=== PATIENT | male | born 1960 | race Caucasian/White ===

== ENCOUNTER → 2024-03-17 13:10 | Outpatient (REF) | payer OTHER, SELFPAY | LOC: MRI 3T 13:10 | PROVIDERS: ATTENDING PHYSICIAN Specialist; FAMILY PHYSICIAN Family Medicine | DX: C61 Malignant neoplasm of prostate (principal) | CPT/HCPCS: 72197; A9575 ==

== ENCOUNTER 2024-04-15 06:10 | Day surgery (SDC) | payer OTHER, SELFPAY ==
[2024-04-01 13:15] VITALS: BMI 36.0
[2024-04-01 13:57] LABS: INR 1.04; PT 13.6 Sec (11.4-14.6)
--- NOTE | 2024-04-02 15:00 | PTCARENOTE ---
Abn ECG, Dr. Garcia notified, no requests made.
[2024-04-15] VITALS (12 sets, daily range): BP systolic 100–160; BP diastolic 64–90; BMI 36.0
[2024-04-15] MEDS: NEOMYCIN ENEMA 1 BOTTLE RECTAL (06:35)
[2024-04-15] MEDS: NORMOSOL-R 1000 IV ×2 (06:40→12:13)
[2024-04-15 11:56] LABS: Glucose - Point of Care 170 mg/dl (70-99)
--- NOTE | 2024-04-15 13:16 | PTCARENOTE ---
pt admitted from PACU AOx2, denies pain, LCTA on 2L abd round obese. 5 lap sites on upper abd. cont bowel, vivar cath draining clear yellow urine. +PP no edema. CB in reach.
[2024-04-15] MEDS: COLACE PO ×2 (15:09)
[2024-04-15] MEDS: ZESTRIL 10 MG PO (15:09)
[2024-04-15] MEDS: ASPIR LOW (ENTERIC COATED) PO (15:10)
[2024-04-15] MEDS: POLYSPORIN/DOUBLE ANTIBIOTIC 1 APPLIC TOPICAL ×2 (15:10→20:16)
[2024-04-15] MEDS: COLACE 100 MG PO (15:27)
--- NOTE | 2024-04-15 16:49 | PTCARENOTE ---
pt tolerated CLD, advanced to regular per orders. urine in vivar now darker with trace sediment. pt denies pain. CB in reach
[2024-04-15] MEDS: TORADOL 15 MG IV (17:05)
[2024-04-15] MEDS: ZYLOPRIM 300 MG PO (22:02)
[2024-04-15] MEDS: CRESTOR 20 MG PO (22:02)
[2024-04-16] MEDS: TORADOL 15 MG IV ×2 (00:33→05:50)
[2024-04-16] MEDS: NORMOSOL-R 1000 IV (00:36)
[2024-04-16 03:00] VITALS: BP 116/62
[2024-04-16] MEDS: SYNTHROID 150 MCG PO (05:49)
[2024-04-16 07:00] VITALS: BP 105/62
[2024-04-16 07:10] LABS: Hematocrit 41.7 % (39.0-52.0); Hemoglobin 14.1 g/dL (13.0-18.0); Mean Corp Hgb Conc. 33.8 g/dL (33.0-37.0); Mean Corpuscular Hgb 29.1 pg (27.0-31.0); Mean Platelet Volume 8.8 fL (7.4-10.4); Platelet Count 178 10^3/uL (130-400); Red Blood Cell Count 4.85 10^6/uL (4.70-6.10); Red Cell Dist. Width 13.3 % (11.5-14.5); White Blood Cell Count 10.5 10^3/uL (4.8-10.8)
[2024-04-16 07:54] LABS: Blood Urea Nitrogen 27 mg/dl (9-20); Calcium 8.3 mg/dl (8.4-10.2); Carbon Dioxide 27 mmol/L (22-30); Chloride 100 mmol/L (98-107); Estimated Creatinine Clearance 55 ml/min; Glucose 116 mg/dl (70-99); Potassium 4.6 mmol/L (3.5-5.1); Sodium 134 mmol/L (135-145); eGFR 44.74
--- NOTE | 2024-04-16 08:29 | W.PN.URO.CBU ---
Today's Communication / Plan
-
discharge
Assessment / Plan
-
stable
Diagnosis
-
Date of Service: April 16, 2024
-
Patient Diagnosis: prostate cancer s/p robotic radical prostatectomy
Post Op Day: 1
Subjective
-
feels fit for discharge
Objective
-
Vital Signs
Temp Pulse Resp BP Pulse Ox
98 F 70 16 105/62 94
04/16/24 07:00 04/16/24 07:00 04/16/24 07:00 04/16/24 07:00 04/16/24 07:00
Intake and Output
04/15/24 04/16/24 04/17/24
06:59 06:59 06:59
Intake Total 1080 / 1080 483 / 483
Output Total 1450 / 1450
Balance -370 / -370 483 / 483
Intake:
Oral fluids 1080 / 1080
IV fluids (Total) 483 / 483
Output:
Urine, Vivar 1450 / 1450
Laboratory Results
04/16/24 06:23
04/16/24 06:23
Physical Exam
-
General - well developed, well nourished, no acute distress
Chest - clear bilaterally
Abdomen - positive bowel sounds, no distention
Genitalia - vivar draining serafin urine
Skin - warm & dry with no rash
Neuro - AOx3, no motor deficits
Extremities - no clubbing, no cyanosis, no edema
Incisions - clean, dry, dressed
[2024-04-16] MEDS: COLACE 100 MG PO (08:30)
[2024-04-16] MEDS: ASPIR LOW (ENTERIC COATED) 81 MG PO (08:30)
[2024-04-16] MEDS: ZESTRIL 10 MG PO (08:30)
[2024-04-16] MEDS: POLYSPORIN/DOUBLE ANTIBIOTIC 1 APPLIC TOPICAL (08:31)
--- NOTE | 2024-04-16 10:15 | CM ---
Spoke with patient to update that attending needs for VN to come out to see patient. Patient stated that he would like for VN. Instructions for patient care written in referral.
Plan: Case management will continue to follow and assist with discharge planning. Home with VN.
== END 2024-04-16 10:25 | disposition home or self-care (01) ==
LOC: SDS 06:10
PROVIDERS: ATTENDING PHYSICIAN Specialist; FAMILY PHYSICIAN Family Medicine
DX: C61 Malignant neoplasm of prostate (principal); K66.0 Peritoneal adhesions (postprocedural) (postinfection)
CPT/HCPCS: 55866; 38571; 51990; 88305; 88307; 88309; 36415; 80048; 82962; 85027; 85610; 85730; 93005

== ENCOUNTER 2024-04-20 15:24 | Inpatient (IN) | payer OTHER, SELFPAY ==
[2024-04-20] VITALS (12 sets, daily range): BP systolic 120–158; BP diastolic 63–94; BMI 35.6; BMI 34.7
--- NOTE | 2024-04-20 11:17 | ED.GENMED ---
History of Present Illness
General
Chief Complaint: Breathing Problem
Source: patient
Exam Limitations: none
Time Seen by Provider: 04/20/24 11:15
Nursing documentation reviewed up to this point in time: agreed with
Travel History
Have you had any contact with someone who has COVID-19?: No
Do you have any symptoms of coronavirus? Fever > 100 degrees, chills, cough, shortness of breath, sore throat, loss of taste or smell, muscle aches, or headache?: No
History of Present Illness
History of Present Illness:
Patient is a 63-year-old male status post robotic radical prostatectomy April 16 presents to the ER for evaluation of shortness of breath. Patient started with mild sore throat 2 days ago and started with mild cough and shortness of breath yesterday.
Patient reports he is wheezing and very short of breath today. He does have history of blood clot/PE in 2012.
Patient is a former smoker quit years ago no prior history of COPD.
Past History
Past History
ED Past Medical History: Other (Gout, prediabetes)
ED Past Surgical History: None
Social History
Tobacco: Non-smoker
Alcohol: None
Review of Systems
Review of Systems
Allergies reviewed?: Yes
All Other Systems: ROS reviewed and negative except as documented in HPI and ROS
Constitutional: Reports no symptoms; Denies fever, fatigue or chills
Respiratory: Reports cough, trouble breathing and other (wheezing )
Cardiac: Reports no symptoms
ABD/GI: Reports no symptoms
: Reports no symptoms
Musculoskeletal: Reports no symptoms
Skin: Reports no symptoms
Psychiatric: Reports no symptoms
Phy Exam
General Physical Exam
General Presentation: no apparent distress
General age: appears stated age
General Skin: warm and dry
General Habitus: normal
General Mental: alert
Cardiovascular Exam
Cardiovascular Exam: regular rate/rhythm, no murmur and normal peripheral pulses
Pulmonary Exam
Pulmonary Exam: other (Hernia umbilicalcough exp wheezing throughout )
Neurological Exam
Neurological Exam: alert and oriented x3
Musculoskeletal Exam
Musculoskeletal Exam: full ROM
Skin Exam
Skin Exam: normal color and warm/dry
Psychiatric Exam
Psychiatric Exam: normal mood/affect
Scores
Heart Failure Risk
Heart Failure Risk Score: Not Applicable
Course
Orders/Labs/Results
Orders:
Orders
04/20/24 09:49
Electrocardiogram (*1) Urgent
Reason for Study: Shortness of Breath
EKG- Treatment ONCE
04/20/24 11:24
Albuterol Sulfate [Ventolin Nebules] 7.5 mg INH R NOW STA
Ipratropium Nebs [Atrovent Nebules] 1 mg INH R NOW STA
04/20/24 11:25
Electrocardiogram (*1) Stat
Reason for Study: Other
Other Reason for Exam: chest pain
CT Chest Pe Study Urgent
Comment:
Reason For Exam: SOB
Cardiac Monitoring- Treatment ONCE
EKG- Treatment ONCE
Dexamethasone Sod Phosphate [Decadron] 10 mg IV NOW STA
04/20/24 11:31
COVID-19 Antigen Urgent
Source: Nasal Swab
Complete Blood Count/With Diff Urgent
Comprehensive Metabolic Panel Urgent
Troponin I Urgent
Influenza A+B Rapid Molecular Urgent
BENJA Source: Nasal Swab
Specimen Description:
Abnormal Lab Results
04/20/24
11:31
Absolute Lymphs (auto) 0.7 L 10^3/uL
(1.2-3.4)
Neutrophils % 75.8 H %
(42.2-75.2)
Lymphocytes % 11.9 L %
(20.5-51.1)
Glucose 134 H mg/dl
(70-99)
04/20/24 11:31
04/20/24 11:31
Vital Signs
Initial and Last Documented VS:
Initial Vital Signs
Temp Pulse Resp BP Pulse Ox
98.1 F 93 20 139/86 93
04/20/24 09:46 04/20/24 09:46 04/20/24 09:46 04/20/24 09:46 04/20/24 09:46
Last Documented Vital Signs
Temp Pulse Resp BP Pulse Ox
98.1 F 94 14 140/76 95
04/20/24 09:46 04/20/24 13:45 04/20/24 13:45 04/20/24 13:43 04/20/24 13:45
MDM/Problems Addressed
Differential Diagnosis Includes:
Not limited to viral syndrome, COVID flu bronchitis PE
MDM/Problems Addressed:
This is a 63-year-old male who presents to the ER complaining of shortness of breath and wheezing since yesterday. He is status post prostate surgery, radical proctectomy by urology on Saturday. Patient did have a sore throat and started with
cough yesterday. Patient presents wheezing hypoxic. Patient was given an hour-long neb and Decadron feeling much better. Still remains slightly hypoxic around 90% on room air placed on supplemental O2 will obtain CT as patient does have a history
of PEs in 2012 and is high risk with recent surg
1420: CT negative for PE lungs are otherwise clear there is dependent atelectasis however patient continues to have wheezing remains hypoxic on supportive O2 will give additional treatment and admit for continued nebs likely viral bronchitis.
*Radiology
Radiology exam reviewed: radiology read reviewed
*Pulse Oximetry
Patient hypoxic: yes
*EKG
Interpreted by ED Provider?: Yes
Interpretation: normal
Heart Rate: 88
Rate: normal
Ischemia: non-specific ST changes
*Critical Care Note
Total Time (30-74mins, 75-104mins- exclusive of procedures): Not Applicable
ED Attending Note
-
Portions of this chart may have been created with voice recognition software.� Occasional wrong word or��sound alike� substitutions may have occurred due to the inherent limitations of voice recognition software.
Discharge Plan
Departure
Patient Disposition: Admit
Date of Disposition: 04/20/24
Time of Disposition: 14:21
Admit to: Telemetry
Admit to doctor: hospitalist
Presentation/result/management discussed w/ accepting MD/DO: Hospitalist
Patient with high blood pressure during this ER visit?: Yes
Condition: Fair
Covid-19: Not Applicable
Discharge Problem:
hypoxia, Bronchitis
Prescriptions:
No Action
cyanocobalamin (vitamin B-12) [Vitamin B-12] 1,000 mcg Tablet
1,000 mcg PO DAILY
aspirin 81 mg Tablet,Delayed Release (Dr/Ec)
81 mg PO DAILY
lisinopril 10 mg Tablet
10 mg PO DAILY
levothyroxine 150 mcg Tablet
150 mcg PO DAILY
ibuprofen 200 mg Tablet
400 mg PO Q6H PRN (Reason: Pain)
allopurinol 300 mg Tablet
300 mg PO HS
rosuvastatin 20 mg Tablet
20 mg PO HS
omega 7-hat-whj-fish oil [Fish Oil] 1,000 mg (120 mg-180 mg) Capsule
1 cap PO BID
tramadol 50 mg tablet
50 mg PO TID PRN (Reason: severe pain) Qty: 10 0RF
Referrals:
Chavo Kathleen MD [Family Provider] -
Interventions
Interventions:
*Risk Screen - Suicide Last Done: 04/20/24 10:59
*General Assessment Last Done: 04/20/24 10:59
*Neglect/Abuse Screening Last Done: 04/20/24 10:59
ED- Fall Risk Assessment Last Done: 04/20/24 10:59
*ED COVID-19 Vaccine History Last Done: 04/20/24 09:46
ED- Cardiac Assessment Last Done: 04/20/24 10:59
ED- Pulmonary Assessment Last Done: 04/20/24 10:59
Discharge Date and Time
Print Language: UKRAINIAN
[2024-04-20] MEDS: ATROVENT NEBULES 1 MG INH (11:38)
[2024-04-20] MEDS: VENTOLIN NEBULES 7.5 MG INH (11:38)
[2024-04-20] MEDS: DECADRON 10 MG IV (11:38)
[2024-04-20 11:39] LABS: % Basophils 0.3 % (0-2); % Eosinophils 5.6 % (0-6); % Immature Granulocytes 0.5 % (0-0.5); % Lymphocytes 11.9 % (20.5-51.1); % Monocytes 5.9 % (1.7-9.3); % Neutrophils 75.8 % (42.2-75.2); Absolute Eosinophils 0.3 10^3/uL (0-0.7); Absolute Lymphocytes 0.7 10^3/uL (1.2-3.4); Absolute Monocytes 0.4 10^3/uL (0.1-0.6); Absolute Neutrophils 4.6 10^3/uL (1.4-6.5); Hematocrit 45.4 % (39.0-52.0); Hemoglobin 15.3 g/dL (13.0-18.0); Mean Corp Hgb Conc. 33.7 g/dL (33.0-37.0); Mean Corpuscular Hgb 29.1 pg (27.0-31.0); Mean Corpuscular Volume 86.3 fL (80.0-94.0); Mean Platelet Volume 8.8 fL (7.4-10.4); Nucleated Red Blood Cells % 0 % (-); Platelet Count 181 10^3/uL (130-400); Red Blood Cell Count 5.26 10^6/uL (4.70-6.10); Red Cell Dist. Width 13.5 % (11.5-14.5); White Blood Cell Count 6.1 10^3/uL (4.8-10.8)
[2024-04-20 11:53] LABS: ALT (SGPT) 27 U/L (0-50); AST (SGOT) 26 U/L (17-59); Alkaline Phosphatase 71 U/L (38-126); Blood Urea Nitrogen 14 mg/dl (9-20); Calcium 9.6 mg/dl (8.4-10.2); Carbon Dioxide 26 mmol/L (22-30); Chloride 103 mmol/L (98-107); Glucose 134 mg/dl (70-99); Potassium 4.8 mmol/L (3.5-5.1); Sodium 136 mmol/L (135-145); Total Bilirubin 0.7 mg/dl (0.2-1.3); Total Protein 6.8 g/dl (6.3-8.2); eGFR > 60.00
[2024-04-20 12:05] LABS: Troponin I < 0.012 ng/ml
[2024-04-20 12:09] LABS: COVID-19 Antigen Negative (Negative)
[2024-04-20] MEDS: VENTOLIN NEBULES 2.5 MG INH (14:31)
--- NOTE | 2024-04-20 14:31 | HPS.HSE ---
Family Physician
-
Family Physician: Chavo Kathleen
Chief Complaint
-
sore throat
cough
sob
History of Present Illness
63 year old with PMH for, GOUT, prostate ca presented to us with sore throat for two days. he started coughing associated with sob yesterday. at times productive cough with yellow sputum. today he started wheezing. denied fever, chills, chest pain.
denied STRAUSS. stated some dizzy. denied abdominal pain ,n,v,d. denied dysuria or hematuria. patient underwent prostatectomy on april 16.
flu, covid, chest x ray negative. patient -90 on RA. patient requiring 2l of oxygen.
Medical History
Past Medical History
Past Medical History: Reports Other
Additional Past Medical History:
HTN
hld
hypothyroidism
CKD
GOUT
PE
prostate ca
Past Surgical History: Reports Other
Additional Past Surgical History:
prostatectomy
inguinal hernia repair
appendectomy
b/ cataract surgery
Social History
Tobacco: Former Smoker
Alcohol: Occasional
Drug: None
Personal: Single
Living: Alone
Family History
Family History: Not pertinent
Allergies / Home Medications
Allergies reflects when Allergies were last updated in [facility].
Home Medications with original date entered in [facility]
Allergy/Medication List:
Allergies
Allergy/AdvReac Type Severity Reaction Status Date / Time
No Known Allergies Allergy Verified 04/15/24 06:24
Home Medications
allopurinol 300 mg tablet 300 mg PO HS 04/07/24
aspirin 81 mg tablet,delayed release 81 mg PO DAILY 04/07/24
cyanocobalamin (vitamin B-12) 1,000 mcg tablet (Vitamin B-12) 1,000 mcg PO DAILY 04/07/24
ibuprofen 200 mg tablet 400 mg PO Q6HPRN PRN mild pain 04/07/24
levothyroxine 150 mcg tablet 150 mcg PO DAILY 04/07/24
lisinopril 10 mg tablet 10 mg PO DAILY 04/07/24
omega 1-qol-haw-fish oil 1,000 mg (120 mg-180 mg) capsule (Fish Oil) 1 cap PO BID 04/07/24
rosuvastatin 20 mg tablet 20 mg PO HS 04/07/24
docusate sodium 100 mg capsule (Colace) 100 mg PO DAILY 04/20/24
Review of Systems
-
Constitutional: Reports No Symptoms
EENT: Reports Sore Throat
Respiratory: Reports Cough and Trouble Breathing
Cardiac: Reports No Symptoms
Abdomen/GI: Reports No Symptoms
: Reports No Symptoms
Musculoskeletal: Reports No Symptoms
Skin: Reports No Symptoms
Neurological: Reports No Symptoms
Endocrine: Reports No Symptoms
Hematologic/Lymphatic: Reports No Symptoms
Psych: Reports No Symptoms
Physical Exam
Vital Signs
Vital Signs
Temp Pulse Resp BP Pulse Ox
98.1 F 94 14 140/76 95
04/20/24 09:46 04/20/24 13:45 04/20/24 13:45 04/20/24 13:43 04/20/24 13:45
Physical Exam
General: Well Developed, Well Nourished and No Apparent Distress
HEENT: NormoCephalic, Moist mucous membranes and Atraumatic
Respiratory: Clear and Wheezes
Cardiac: S1/S2 and Regular Rhythm; No Murmur or Rub
GI: Soft, Non Tender, Non Distended and Normal Bowel Sounds; No Organomegaly
Rectal: Deferred by Provider
Musculoskeletal: No Clubbing, No Cyanosis and No Edema
Skin: No Rash
Neuro: AO x 3 and Nonfocal/grossly intact
Psych: Calm
Laboratory Results
-
04/20/24 11:31
04/20/24 11:31
Laboratory Results
Total Bilirubin 0.7 mg/dl (0.2-1.3) 04/20/24 11:31
AST 26 U/L (17-59) 04/20/24 11:31
ALT 27 U/L (0-50) 04/20/24 11:31
Alkaline Phosphatase 71 U/L (38-126) 04/20/24 11:31
Troponin I < 0.012 ng/ml 04/20/24 11:31
Data Reviewed
-
Diagnostic Radiology: Report Reviewed by me
Lab Data: Labs Reviewed by me
Impression/Plan
-
#sob/sore throat/cough/acute hypoxic respiratory failure likely from Bronchitis
-CT negative
-nebs and steroids in ER
-covid negative
89-90 on RA, patient requiring supplemental oxygen
-continue supplemental oxygen to keep sat >92
-wean as tolerated
-nebs prn for sob/wheezing
-Decadron 4mg iv every 12 hours
-influenza negative
-obtain sputum culture
-zithro 500mg po oral daily for 3 days
#GOUT
-Allopurinol continued
# Hypothyroidism
-Levothyroxine continued
# Essential hypertension
-Lisinopril continued
# Hyperlipidemia
-Statin continued
# DVT prophylaxis
-Lovenox subcu
# CODE STATUS
-Full code
[2024-04-20 15:37] LABS: Procalcitonin 0.07 ng/ml (0.0-0.25)
[2024-04-20] MEDS: DUONEB 3 ML INH ×2 (15:41→20:00)
[2024-04-20] MEDS: ZITHROMAX 500 MG PO (16:10)
--- NOTE | 2024-04-20 16:48 | W.PN.UPDATE ---
Update Note
Progress Note Update
HPI: 63 year old with past medical history of gout, prostate cancer status post recent radical prostatectomy 04/15/24; p/w sore throat, mild cough, shortness of breath and wheezing. Respiratory symptoms started about 2 days prior to admission
In the ED, his COVID and flu were tested negative. CT Chest was negative for acute pulmonary embolism.
A/P:
# SOB, mild cough wheezing, likely due to acute bronchitis/COPD exacerbation
# Acute hypoxic respiratory insufficiency
CT chest negative for PE
Procalcitonin negative, which essentially rules out bacterial pneumonia
Continue DuoNebs
Status post Decadron 10 IV in ER, continue with 4 IV every 12 hours
Can cover with azithromycin for COPD exacerbation
Continue O2 support via 2L nasal cannula, wean as tolerated
# Gout
Cont Allopurinol
# Hypothyroidism
Cont Levothyroxine
# Essential hypertension
Cont Lisinopril
# Hyperlipidemia
Cont statin
DVT prophylaxis-Lovenox subcu
CODE STATUS-Full code
--- NOTE | 2024-04-20 19:30 | PTCARENOTE ---
Awake, alert, & oriented upon arrival to floor. Able to ambulate from hallway to bed w/o difficulty. Denies any pain or lightheadedness. Pt has vivar cath in place from recent prostate surgery. Leg bag removed and replaced w/larger drainage bag.
[2024-04-20] MEDS: LOVENOX 40 MG SC (20:38)
[2024-04-20] MEDS: CRESTOR 20 MG PO (20:39)
[2024-04-20] MEDS: ZYLOPRIM 300 MG PO (20:39)
[2024-04-21] MEDS: DECADRON 4 MG IV ×3 (00:30→23:09)
[2024-04-21] MEDS: FLUSH (NSS) 2 FLUSH IV (00:31)
[2024-04-21] MEDS: SYNTHROID 150 MCG PO (06:29)
[2024-04-21] MEDS: DUONEB 3 ML INH ×4 (07:37→21:24)
[2024-04-21 07:55] VITALS: BP 124/80
[2024-04-21] MEDS: ASPIR LOW (ENTERIC COATED) 81 MG PO (08:33)
[2024-04-21] MEDS: ZITHROMAX 500 MG PO (08:33)
[2024-04-21] MEDS: ZESTRIL 10 MG PO (08:33)
[2024-04-21 09:12] LABS: % Basophils 0.2 % (0-2); % Eosinophils 0.2 % (0-6); % Immature Granulocytes 0.5 % (0-0.5); % Neutrophils 87.1 % (42.2-75.2); Absolute Lymphocytes 0.6 10^3/uL (1.2-3.4); Absolute Monocytes 0.2 10^3/uL (0.1-0.6); Absolute Neutrophils 5.8 10^3/uL (1.4-6.5); Hematocrit 44.2 % (39.0-52.0); Hemoglobin 14.3 g/dL (13.0-18.0); Mean Corp Hgb Conc. 32.4 g/dL (33.0-37.0); Mean Corpuscular Hgb 28.7 pg (27.0-31.0); Mean Corpuscular Volume 88.6 fL (80.0-94.0); Nucleated Red Blood Cells % 0 % (-); Platelet Count 200 10^3/uL (130-400); Red Blood Cell Count 4.99 10^6/uL (4.70-6.10); Red Cell Dist. Width 13.3 % (11.5-14.5); White Blood Cell Count 6.6 10^3/uL (4.8-10.8)
[2024-04-21 09:46] LABS: Blood Urea Nitrogen 20 mg/dl (9-20); Calcium 9.6 mg/dl (8.4-10.2); Carbon Dioxide 23 mmol/L (22-30); Chloride 101 mmol/L (98-107); Estimated Creatinine Clearance 78 ml/min; Glucose 161 mg/dl (70-99); Potassium 4.6 mmol/L (3.5-5.1); Sodium 136 mmol/L (135-145); eGFR > 60.00
--- NOTE | 2024-04-21 09:59 | VNURNOTE ---
Chart reviewed. Patient active with [facility]. [facility] referral placed in [facility]. Will follow hospital course and watch for potential home 02 needs.
--- NOTE | 2024-04-21 11:05 | W.PN.HOSP.TC ---
Today's Communication/Plan
-
CW current tx
If continued improvement will dc home tomorrow.
Assessment / Plan
Assessment / Plan
# Acute bronchitis-patient presents with cough, productive phlegm and wheezing.
-No evidence of p.o. pneumonia.
-No clinical evidence of heart failure
-Still has active reactive airways but all in favor of acute bronchitis.
-Continue the steroids, nebulizers and antibiotics
-Afebrile and nontoxic.
-covid negative
-influenza negative
-obtain sputum culture
# Recent robotic assisted laparoscopic radical prostatectomy-Looney catheter in place since surgery which I would continue.
#GOUT
-Allopurinol continued
# Hypothyroidism
-Levothyroxine continued
# Essential hypertension
-Lisinopril continued
# Hyperlipidemia
-Statin continued
# DVT prophylaxis
-Lovenox subcu
# CODE STATUS
-Full code
Anticipated Discharge: 24 - 48 hours
Subjective/Interval History
-
Date of Service: April 21, 2024
Patient feeling improved. Cough present. Mildly productive. Wheezing is improved.
No chest pain.
No fever or chills.
Objective Data
-
Labs:
Laboratory Results
04/21/24
08:31
WBC 6.6
Hgb 14.3
Hct 44.2
Plt Count 200
Sodium 136
Potassium 4.6
Chloride 101
Carbon Dioxide 23
BUN 20
Creatinine 1.2
Glucose 161 H
Calcium 9.6
Vital Signs:
Vital Signs
Temp Pulse Resp BP Pulse Ox
97.9 F 77 20 124/80 92
04/21/24 07:55 04/21/24 08:33 04/21/24 07:55 04/21/24 08:33 04/21/24 07:55
I&O
04/20/24 04/21/24 04/22/24
06:59 06:59 06:59
Intake Total 0 / 0
Output Total 1749 / 1749
Balance -1750 / -175
Review of Systems
-
Abdomen/GI: Denies Abdominal Pain, Nausea or Vomiting
Neuro: Denies Dizzy
Physical Exam
-
General: Comfortable
Respiratory: Wheezes (bl) and Non Labored Respirations; Negative Accessory Resp Muscle Use
Cardiac: Regular Rhythm and S1/S2
Neuro: AO x 3
Data Reviewed
-
Labs: Labs Reviewed by me
[2024-04-21 15:55] VITALS: BP 105/67
[2024-04-21] MEDS: LOVENOX 40 MG SC (16:59)
[2024-04-21] MEDS: CRESTOR 20 MG PO (21:40)
[2024-04-21] MEDS: ZYLOPRIM 300 MG PO (21:40)
[2024-04-21 23:41] VITALS: BP 111/62
[2024-04-22] MEDS: SYNTHROID 150 MCG PO (05:00)
[2024-04-22 05:54] LABS: % Immature Granulocytes 0.4 % (0-0.5); % Lymphocytes 7.7 % (20.5-51.1); % Monocytes 2.9 % (1.7-9.3); Absolute Lymphocytes 0.8 10^3/uL (1.2-3.4); Absolute Monocytes 0.3 10^3/uL (0.1-0.6); Absolute Neutrophils 8.9 10^3/uL (1.4-6.5); Hemoglobin 14.2 g/dL (13.0-18.0); Mean Corp Hgb Conc. 32.3 g/dL (33.0-37.0); Mean Corpuscular Hgb 28.6 pg (27.0-31.0); Mean Corpuscular Volume 88.7 fL (80.0-94.0); Nucleated Red Blood Cells % 0 % (-); Platelet Count 237 10^3/uL (130-400); Red Blood Cell Count 4.96 10^6/uL (4.70-6.10); Red Cell Dist. Width 13.4 % (11.5-14.5)
[2024-04-22 06:11] LABS: Blood Urea Nitrogen 31 mg/dl (9-20); Calcium 9.7 mg/dl (8.4-10.2); Carbon Dioxide 24 mmol/L (22-30); Chloride 101 mmol/L (98-107); Estimated Creatinine Clearance 63 ml/min; Glucose 167 mg/dl (70-99); Potassium 5.6 mmol/L (3.5-5.1); Sodium 137 mmol/L (135-145); eGFR 51.99
[2024-04-22 07:30] VITALS: BP 103/62
[2024-04-22] MEDS: DUONEB 3 ML INH ×3 (07:56→15:27)
[2024-04-22] MEDS: ZESTRIL 10 MG PO (08:04)
[2024-04-22] MEDS: ASPIR LOW (ENTERIC COATED) 81 MG PO (08:05)
[2024-04-22] MEDS: ZITHROMAX 500 MG PO (08:05)
[2024-04-22 08:09] VITALS: BP 103/62
--- NOTE | 2024-04-22 09:34 | VNURNOTE ---
Met patient at bedside, not on 02. He tells me potential DC today. He is aware of [facility] resumption once home. SER[facility]IN referral updated [facility].
--- NOTE | 2024-04-22 10:30 | PTCARENOTE ---
After ambulating in the [facility]nell, blood tinged urine noted in pt. vivar catheter tubing. Dr. Childress made aware on morning rounds. Will continue to monitor and report.
--- NOTE | 2024-04-22 10:45 | PTCARENOTE ---
Dr. Childress made aware pt. K 5.6 this morning. No new orders at this time.
[2024-04-22] MEDS: DECADRON 4 MG IV (11:19)
[2024-04-22] MEDS: LOKELMA 5 GRAM PO (13:41)
--- NOTE | 2024-04-22 14:06 | W.PN.HOSP.TC ---
Addendum entered and electronically signed by Eamon Childress MD 04/22/24 17:03:
Rpt K after Lokelma is down to 5.0 ,Cr 1.5
Advised pt to hold on Lisinopril and follow with PCP within a week to check on BP and also repeating BMP.
Total time of dc 32 min
Original Note:
Today's Communication/Plan
-
Lokelma
Repeat BMP
Hold lisinopril
DC planning
Assessment / Plan
Assessment / Plan
# Acute bronchitis-patient presents with cough, productive phlegm and wheezing.
-No evidence of p.o. pneumonia.
-No clinical evidence of heart failure
- Improved clinical symptoms and no wheezing.
- Switch to oral prednisone and taper over a week. Finished 2 day of antibiotics. Will prescribe day of home inhaler.
-Afebrile and nontoxic.
-covid negative
-influenza negative
# Hyperkalemia with DANITA - ACEI would explain. No extra renal losses. Pt has Looney catheter which is draining well. Will give a dose of Lokelma, repeat BMP. Patient advised to hold lisinopril. He has been taking lisinopril for 5 years without
issues. He is only on minimal dose. His blood pressure is pretty good. Advised him to follow-up with the PCP and consider alternative to lisinopril; most of his K are in high 4's in past .
# Recent robotic assisted laparoscopic radical prostatectomy-Looney catheter in place since surgery which I would continue.
#GOUT
-Allopurinol continued
# Hypothyroidism
-Levothyroxine continued
# Essential hypertension
-Lisinopril continued
# Hyperlipidemia
-Statin continued
# DVT prophylaxis
-Lovenox subcu
# CODE STATUS
-Full code
Anticipated Discharge: Today
Subjective/Interval History
-
Date of Service: April 22, 2024
Continued further improvement in his breathing.
Cough mostly dry.
No fever or chills.
No nausea vomiting. No chest pain.
Objective Data
-
Labs:
Laboratory Results
04/22/24 04/22/24
04:59 16:00
WBC 10.0
Hgb 14.2
Hct 44.0
Plt Count 237
Sodium 137 Pending
Potassium 5.6 H Pending
Chloride 101 Pending
Carbon Dioxide 24 Pending
BUN 31 H Pending
Creatinine 1.5 H Pending
Glucose 167 H Pending
Calcium 9.7 Pending
Vital Signs:
Vital Signs
Temp Pulse Resp BP Pulse Ox
97.7 F 88 18 103/62 93
04/22/24 07:30 04/22/24 11:34 04/22/24 11:34 04/22/24 08:04 04/22/24 11:34
I&O
04/21/24 04/22/24 04/23/24
06:59 06:59 06:59
Intake Total 0 / 0 1140 / 1140
Output Total 1750 / 1750 2650 / 2650
Balance -1750 / -1750 -1510 / -1510
Review of Systems
-
Constitutional: Denies Fever
EENT: Denies Sore Throat
Neuro: Denies Dizzy
Physical Exam
-
General: No Apparent Distress
HEENT: Moist Mucous Membranes
Respiratory: Wheezes (faint wheeze) and Non Labored Respirations; Negative Crackles or Accessory Resp Muscle Use
Cardiac: Regular Rhythm and S1/S2
Neuro: AO x 3
Data Reviewed
-
Labs: Labs Reviewed by me
--- NOTE | 2024-04-22 14:18 | W.DS.TRANS ---
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
-
Discharge Instructions:
Discharge Diagnosis/Procedures acute bronchitis
Hyperkalemia suspect secondary lisinopril
HTN
Diet Regular
Activity As tolerated
Driving Restrictions As prior to admission
Blood Work BMP in one week -arrange through your PCP
Instructions:
Stand-Alone Forms:
Changes to Home Medications: Yes
Discharge Medications:
DC Medications w/original date entered in [employer]
allopurinol 300 mg tablet 300 mg PO HS gout 04/07/24
aspirin 81 mg tablet,delayed release 81 mg PO DAILY Blood Clot Prevention/Tx 04/07/24
cyanocobalamin (vitamin B-12) 1,000 mcg tablet (Vitamin B-12) 1,000 mcg PO DAILY Supplement 04/07/24
ibuprofen 200 mg tablet 400 mg PO Q6HPRN PRN mild pain 04/07/24
levothyroxine 150 mcg tablet 150 mcg PO DAILY Thyroid 04/07/24
omega 6-yta-esd-fish oil 1,000 mg (120 mg-180 mg) capsule (Fish Oil) 1 cap PO BID Supplement 04/07/24
rosuvastatin 20 mg tablet 20 mg PO HS High Cholesterol 04/07/24
docusate sodium 100 mg capsule (Colace) 100 mg PO DAILY constipation 04/20/24
albuterol sulfate 90 mcg/actuation aerosol inhaler 2 puff inhalation Q6H PRN shortness of breath or wheezing #6.7 grams 04/22/24
prednisone 10 mg tablet 10 mg PO DIRECTED #12 tabs 04/22/24
Home Medication Changes
New medication-prednisone taper, albuterol inhaler
Discontinue medication-lisinopril
Pending Results: No
[2024-04-22 15:25] VITALS: BP 104/65
[2024-04-22 16:16] VITALS: BP 104/65
[2024-04-22 16:37] LABS: Blood Urea Nitrogen 35 mg/dl (9-20); Calcium 9.8 mg/dl (8.4-10.2); Carbon Dioxide 21 mmol/L (22-30); Chloride 99 mmol/L (98-107); Estimated Creatinine Clearance 63 ml/min; Glucose 184 mg/dl (70-99); Sodium 131 mmol/L (135-145); eGFR 51.99
[2024-04-22] MEDS: LOVENOX SC (17:23)
--- NOTE | 2024-04-22 17:47 | CM ---
Chart reviewed. Sae recently had prostate surgery and was receiving [facility] services. He lives alone, but is able to manage without assistance.
Plan: Return home with resumption of [facility]. No additional needs at this time.
PCP: Chavo Kathleen
== END 2024-04-22 18:34 | disposition home or self-care (01) | DRG 202 ==
LOC: 4 EAST ACU 15:24
PROVIDERS: Nurse Practitioner; Registered Nurse; ADMITTING PHYSICIAN Internal Medicine; ATTENDING PHYSICIAN Internal Medicine; EMERGENCY PHYSICIAN Emergency Medicine; FAMILY PHYSICIAN Family Medicine
DX: J20.9 Acute bronchitis, unspecified (principal); N17.9 Acute kidney failure, unspecified; E87.5 Hyperkalemia; E03.9 Hypothyroidism, unspecified; E78.5 Hyperlipidemia, unspecified; I12.9 Hypertensive chronic kidney disease with stage 1 through stage 4 chronic kidney disease, or unspecified chronic kidney disease; N18.9 Chronic kidney disease, unspecified; M10.9 Gout, unspecified; Z85.46 Personal history of malignant neoplasm of prostate
CPT/HCPCS: 71275; 80048; 80053; 84145; 84484; 85025; 87040; 87502; 87811; 93005; 94640; 96374; 99285; Q9967

== ENCOUNTER → 2024-12-07 13:14 | Outpatient (REF) | payer OTHER, SELFPAY | LOC: HWRAD 13:14 | PROVIDERS: ATTENDING PHYSICIAN Family Medicine | DX: M25.562 Pain in left knee (principal) | CPT/HCPCS: 73564 ==